=== PATIENT | male | born 1955 | race Caucasian/White ===

== ENCOUNTER → 2017-06-09 | Outpatient (CLI) | payer BC ==
[~2017-06-09] MED LIST: ESCI10TA17 PO
--- NOTE | 2017-06-09 09:59 | DIAGNOSTIC IMAGING REPORT ---
CERVICAL SPINE 6 VIEWS HISTORY: Neck stiffness. TORTICOLLIS COMPARISON: None. FINDINGS: The cervical spine is visualized from C1 through the superior endplate of T1. There is no fracture. No subluxation. Straightening of the cervical spine. Mild to moderate disc space narrowing at C5-C6 and C6-C7 with large anterior osteophytes seen from C4 through C7. Mild bilateral neural foraminal narrowing at C3-C4 primarily due to the facet arthrosis. Moderate bilateral neural foraminal narrowing at C5-C6 and C6-C7 due to the facet arthrosis and uncovertebral hypertrophy. Prevertebral soft tissues and the atlantodens interval are intact. IMPRESSION: No fracture or subluxation within the cervical spine. Degenerative changes as described above. Electronically signed by: Sascha Knox M.D. 06/09/2017 9:58 AM Dictated Date/Time: 06/09/2017 9:56 AM
== END | disposition home or self-care (01) ==
LOC: C.LAB1850 09:08
PROVIDERS: ATTEND Student in an Organized Health Care Education/Training Program
DX: M43.6 Torticollis (principal)

== ENCOUNTER 2020-05-21 06:52 | Observation (INO) ==
--- NOTE | 2020-04-22 12:08 | PAT Medication Instructions ---
Medication Instructions Date of Service April 22, 2020 Home Medications irbesartan 150 mg PO QAM multivitamin 1 tab PO QAM DO NOT take the morning of surgery irbesartan 150 mg PO QAM multivitamin 1 tab PO QAM OTHERWISE NOTHING TO EAT OR DRINK AFTER MIDNIGHT Other Notes If you have any questions please call us at [phone] or [phone] or [phone] or [phone]
--- NOTE | 2020-04-25 12:02 | Anesthesiology Consultation ---
Date of Service April 25, 2020 Assessment & Plan (1) Encounter for pre-operative examination: COVID Status: As of 04/25 assessment, patient denies travel to endemic area, known exposure/sick contacts, or symptoms of COVID19. Patient instructed that they and their household members must follow strict social distancing guidelines, wear a mask in public and avoid travel/events/gatherings for 14 days prior to surgery. Preoperative COVID19 testing to be completed prior to surgery per surgeon's arrangements (05/15 at [facility]). Patient made aware to self-isolate as much as possible between COVID testing and surgery. Patient is very apprehensive about spinal anesthesia. Discussed options, reassurance provided. Patient ultimately amenable to SAB, but should be discuss ed further AM DOS. Chart Review Chart Review: Acceptable Risk for Surgery (pending surgeon-ordered Pcp clearance 05/06 and cardio clearance 05/05) and Patient seen in Pre Admission Testing Teaching & Discussion Instructed NPO after midnight before surgery, except medications with 15 cc of water. Medication instructions provided according to the PAT guidelines. History Surgery Operation Date: 05/21/20 09:05 Proposed Procedures p Right Total Knee Arthroplasty - Papito Craft MD Height/Weight Height: 6 ft 1 in Weight: 133.9 kg Allergies Allergy/AdvReac Type Severity Reaction Status Date / Time No Known Allergies Allergy Verified 04/16/20 14:20 Medications Home Medications Medication Instructions Recorded Confirmed Last Taken irbesartan 150 mg PO QAM 04/16/20 04/16/20 Unknown multivitamin 1 tab PO QAM 04/16/20 04/16/20 Unknown Past Medical History Medical History (Updated 04/28/20 @ 10:12 by Rachid Mchugh) Depression HX Hypertension Obesity Exercise / Class Metabolic Activity II 4-5 Yardwork/Stairs/Walk up hill Past Family History Family History (Updated 04/16/20 @ 14:42 by Lizet Morgan RN) Father Family history of esophageal cancer STOMACH CANCER Past Surgical History Surgical History History of appendectomy History of arthroscopy R/L History of colonoscopy History of repair of rotator cuff RIGHT History of tooth extraction Past Anesthesia History No Hx of Anesthesia Complications and No Family Hx of Anesthesia Complications History of PONV No Hx of PONV and No Hx of Motion Sickness Social History Smoking Status: Never smoker Do You Dip or Chew Tobacco: Yes (1 CAN PER 2-3 DAYS -- ADVISED NONE AM DOS) Hx Alcohol Use: Yes Alcohol type: beer, wine and hard liquor alcohol intake frequency: holidays/special occasions only Alcohol Intake Frequency Comment: 1-2 X A MONTH Hx Substance Use: No Review of Systems Pt denies any recent chest pain, shortness of breath, palpitations, cough, fever, URI, or uncontrolled acid reflux. Physical Exam Vital Signs BP: 149/83 P: 85bpm SPO2: 96% RA T: 98.2 F R: 16 ENMT Mouth: + chipped teeth; no loose teeth Mallampati Class: IV Neck + thick neck; neck extension not limited Respiratory normal respiratory effort, lungs clear to auscultation Cardiovascular RRR, no murmur, no edema Vessels: no carotid bruit Testing Laboratory Results 04/25/20 12:22 04/25/20 12:22 PT 10.3 Seconds (9.0-12.0) 04/25/20 12: INR 1.0 (0.9-1.1) 04/25/20 12:22 APTT 30.3 Seconds (21.0-31.0) 04/25/20 12:22 Urine Color Yellow 04/25/20 12:22 Urine Appearance Clear (Clear) 04/25/20 12:22 Urine pH 6.0 (4.5-7.5) 04/25/20 12:22 Ur Specific [place] 1.023 (1.000-1.030) 04/25/20 12:22 Urine Protein Negative (Negative) 04/25/20 12:22 Urine Glucose (UA) Negative (Negative) 04/25/20 12:22 Urine Ketones Negative (Negative) 04/25/20 12:22 Urine Nitrite Negative (Negative) 04/25/20 12:22 Ur Leukocyte Esterase Negative (Negative) 04/25/20 12:22 Blood Type A Positive 04/25/20 12:22 Antibody Screen NEGATIVE 04/25/20 12:22 Electrocardiogram Date: 04/25/20 Findings: + NSR @ (78bpm) Chest X-Ray Date: 04/25/20 Findings: + NAD
--- NOTE | 2020-04-25 12:46 | XRay Report ---
XR chest Pre-admission PA/Lat CLINICAL HISTORY: Preoperative chest COMPARISON STUDY: 04/13/2019 FINDINGS: The cardiac and mediastinal contours are normal. There is no evidence of focal pulmonary co nsolidation. There is no evidence of failure. No pleural effusions are visualized.[ IMPRESSION: No active disease in the chest. ACT 112: Negative or not required by law. Electronically signed by: Chan Osei M.D. 04/25/2020 12:45 PM
[2020-04-25 13:50] LABS: Appearance Urine Clear (Clear); Bilirubin Urine Negative (Negative); Blood Urine Negative (Negative); Color Urine Yellow; Glucose Urine UA Negative (Negative); Ketones Urine Negative (Negative); Leukocyte Esterase Urine Negative (Negative); Nitrite Urine Negative (Negative); Protein Urine Negative (Negative); Specific Gravity Urine 1.023 (1.000-1.030); Urobilinogen Urine Negative (Negative)
[2020-04-25 13:51] LABS: Basophils # (auto) 0.06 K/uL (0-0.2); Basophils % (auto) 0.9 %; Eosinophils # (auto) 0.23 K/uL (0-0.5); Eosinophils % (auto) 3.4 %; Hematocrit (blood only) 45.3 % (42-52); Hemoglobin 14.8 g/dL (14.0-18.0); Immature Granulocytes # (auto) 0.03 K/uL (0.00-0.02); Immature Granulocytes % (auto) 0.4 %; Lymphocytes # (auto) 1.85 K/uL (1.2-3.4); Lymphocytes % (auto) 27.2 %; Mean Corpuscular Hgb Conc 32.7 g/dL (32-36); Mean Corpuscular Volume 85.8 fL (80-100); Mean Platelet Volume 10.6 fL (7.4-10.4); Monocytes # (auto) 0.75 K/uL (0.11-0.59); Neutrophils # (auto) 3.89 K/uL (1.4-6.5); Neutrophils % (auto) 57.1 %; Platelet Count 292 K/uL (130-400); RDW Coefficient of Variation 14.1 % (11.5-14.5); RDW Standard Deviation 44.1 fL (36.4-46.3); Red Blood Count 5.28 M/uL (4.7-6.1); White Blood Count 6.81 K/uL (4.8-10.8)
[2020-04-25 14:00] LABS: Partial Thromboplastin Ratio 1.1; Partial Thromboplastin Time 30.3 Seconds (21.0-31.0); Prothrombin Time 10.3 Seconds (9.0-12.0)
[2020-04-25 14:37] LABS: BUN Creatinine Ratio 14.7 (10-20); Calcium 9.4 mg/dl (8.5-10.1); Est GFR (African American) 100.3; Est GFR (Non-African American) 86.5; Potassium 4.6 mmol/L (3.5-5.1)
--- NOTE | 2020-04-26 07:34 | Electrocardiogram Report ---
Test Reason : Blood Pressure : / mmHG Vent. Rate : 078 BPM Atrial Rate : 078 BPM P-R Int : 184 ms QRS Dur : 108 ms QT Int : 384 ms P-R-T Axes : 070 026 029 degrees QTc Int : 437 ms Normal sinus rhythm Normal ECG When compared with ECG of 24-APR-2007 17:43, No significant change was found Confirmed by Fredy Hansen ([id number]) on 04/26/2020 7:33:58 AM Referred By: Papito Craft Confirmed By:Fredy Hansen
--- NOTE | 2020-04-30 13:18 | History & Physical Report ---
Date of Service April 30, 2020 Assessment & Plan (1) Right knee DJD: Postoperative prescriptions for Percocet and Coumadin will be provided at discharge from the hospital. Anticipate discharge to home with home health services. He understands it will be a 1-night stay. Preoperative lab work, EKG, and chest x-ray have been ordered. Medical clearance was requested from his PCP, Dr. Musa. Prescription was given for a rolling walker. He will obtain a cane as well. PDMP was checked and there are no concerning findings. The patient is aware of the COVID-19 risks associated with surgery. He is currently asymptomatic of any COVID-19 symptoms. Nasal swab testing for COVID- 19 was ordered. History of Present Illness Chief Complaint: Right knee pain Primary Care Provider: Edward Musa MD This 64-year-old white male presents today for evaluation of approximately 30- year history of right knee pain. He is scheduled to undergo a right knee total knee arthroplasty on 05/21/2020. Pain has waxed and waned over the years. He states it was tolerable for many of those years. Over the past 2 years, it has become more significant and is affecting his ADLs. Pain is worse with weightbearing. He cannot do the things he would like secondary to knee pain. He notes frequent effusions. Occasional night pain. No numbness or tingling in the knee. He does note chronic numbness over the anterolateral thigh, but this is not new. He notes some loss of motion. He has tried activity modification as well as oral pain medication and anti-inflammatories without lasting improvement. He now elects to proceed with total knee arthroplasty in hopes of improving his pain and function. Preoperative imaging has been obtained. Allergies Allergy/AdvReac Type Severity Reaction Status Date / Time No Known Allergies Allergy Verified 04/16/20 14:20 Home Medications Medication Instructions Recorded Confirmed Type irbesartan 150 mg PO QAM 04/16/20 04/16/20 History multivitamin 1 tab PO QAM 04/16/20 04/16/20 History Past Med/Surg History Medical History Depression HX Hypertension Obesity Surgical History History of appendectomy History of arthroscopy R/L History of colonoscopy History of repair of rotator cuff RIGHT History of tooth extraction Family History Father Family history of esophageal cancer STOMACH CANCER Other Melanoma Social History (Updated 04/30/20 @ 13:17 by Pipe Hinojosa PA-C) Smoking Status: Never smoker Second Hand Exposure: Yes (FATHER SMOKED); Do You Dip or Chew Tobacco: Yes (1 CAN PER 2-3 DAYS -- ADVISED NONE AM DOS); Hx Alcohol Use: Yes Alcohol type: beer, wine and hard liquor Hx Substance Use: No Preferred Language: Honduran Communication Ability: Effective Sales Enablement Lead Required: No Beliefs That Will Affect Care: None Current Living Situation: Spouse current occupational status: employed Other Information That Helps Us Care for You: No Feels Safe at Home: Yes Safety Concerns: Feels Safe At This Time Assistive Devices: Glasses Review of Systems Review of Systems: All systems reviewed & are unremarkable except as noted in HPI & below A total of 10 systems were reviewed. Physical Exam Physical Exam: Vitals: Height 185.5 cm, weight 134.1 kilograms, BMI 39.0, temperature 36.4, BP 144/78, pulse 85, O2 sat 96% on room air. General: Well- developed, well-nourished middle-aged white male in no acute distress. Sitting on a chair. Alert and oriented. Very large individual. Skin: Warm and dry with good turgor. No rashes or lesions. No ecchymosis or erythema. HEENT: Normocephalic, atraumatic. Eyes: PERRLA. EOMI. Nares and oropharynx exams deferred due to COVID precautions. Heart: RRR, no MGR. Lungs: Clear to auscultation bilaterally; no crackles, rhonchi or wheezing; good air movement. Abdomen: Obese; bowel sounds present x4; soft, nontender. No organomegaly. No masses. Musculoskeletal: Right knee evaluation reveals a mild intraarticular effusion. No redness or warmth. No abrasions. He lacks about 3 degrees of terminal extension. Flexion to just greater than 110 degrees. Strength is 5/5 with good quad tone. He has focal discomfort with palpation over the medial and lateral joint lines. There is also peripatellar discomfort with palpation. Crepitus is palpable with motion. Stable collateral ligaments. He does have a varus alignment. Ambulates with an antalgic gait. No defect in the patellar tendon or quadriceps tendon. Neurologic: Gross sensation is intact across the right leg by soft touch. Peripheral pulses are 2+. Results & Data Results & Data ([facility]) Diagnostic Findings Radiographic imaging previously obtained shows end-stage DJD of the right knee with varus alignment. There is lateral subluxation of the tibia. Periarticular osteophytes and subchondral sclerosis are also present.
[~2020-05-21 06:52] MED LIST changes: +BUPIVACAINE 0.5 % 5 MG/1 ML PF 10ML VIAL ONE; -ESCI10TA17 PO; +LR 500ML BOLUS, THEN 15ML/HR IV SCH; +LR 60ML/HR IV SCH; +ROPIVACAINE 0.5% 5 MG/ML 30 ML VIAL ONE; +ROPIVACAINE 0.5% HCL/PF 150 MG, BUPIVACAINE 0.75% MPF 20 ML, EPINEPHrine 0.15 MG, Ketor... INFIL SCH; +TRANEXAMIC ACID 1,000 MG **IV Pre-op IV SCH
[2020-05-21] MEDS ORDERED: LIDOCAINE HCL 2% 2 ML VIAL/AMP(20MG/ML) INFIL ONE ×2 (07:34→10:53)
[2020-05-21] MEDS ORDERED: PROPOFOL IV EMULSION 10 MG/ML 20 ML VIAL IV ONE (07:34)
[2020-05-21] MEDS ORDERED: MIDAZOLAM HCL 1 MG/ML 2ML VIAL ONE (07:34)
[2020-05-21] MEDS ORDERED: fentaNYL citrate 100 MCG/2 ML VIAL ONE (07:34)
--- NOTE | 2020-05-21 08:34 | History & Physical Bridge Note ---
Date of Service May 21, 2020 History & Physical Bridge Note I have examined the patient, reviewed the History & Physical and in the interval since the performance of the History & Physical I have noted the following changes of clinical significance:consent obtained/site verified/covid screen negative. no changes noted
[2020-05-21] MEDS ORDERED: ORTHO JOINT ANESTHETIC ONE (08:46)
[2020-05-21] MEDS ORDERED: KETAMINE 50 MG/5 ML SYRINGE ONE (09:19)
--- NOTE | 2020-05-21 10:38 | Post Operative Brief Note ---
Immediate Post Op Note v1 Date of Surgery May 21, 2020 Pre & Post Diagnosis Operation Date: 05/21/20 08:50 Pre-Op Diagnosis: Right Knee Degenerative Joint Disease Post-Op Diagnosis: Right Knee Degenerative Joint Disease I identified the patient and participated in the time-out.: Yes Procedure Operation Date: 05/21/20 08:50 Actual Procedures p Right Total Knee Arthroplasty(Right) - Papito Craft MD Surgeon Papito Craft MD Audit Consultant juliana/jeannine Estimated Blood Loss 50 Findings Consistent with Post-Op Diagnosis
--- NOTE | 2020-05-21 10:48 | Operative Report ---
Post Operative Report Pre & Post Diagnosis Operation Date: 05/21/20 08:50 Pre-Op Diagnosis: Right Knee Degenerative Joint Disease Post-Op Diagnosis: Right Knee Degenerative Joint Disease I identified the patient and participated in the time-out.: Yes Procedure Operation Date: 05/21/20 08:50 Actual Procedures p Right Total Knee Arthroplasty(Right) - Papito Craft MD Surgeon RADHA Craft MD Imaging Nurse juliana/jeannine NOE Estimated Blood Loss 50 Findings Consistent with Post-Op Diagnosis Specimens see operative report Drains none Complications none Disposition Accompanied Patient To Recovery: Yes Disposition: Recovery Room Indications This 64-year-old male presented to the office with complaints of persisting right knee pain. He has had pain for years. He has tried conservative care measures without improvement. Patient elected to proceed with surgical intervention in hopes of alleviating his pain and improving his function. Preoperative imaging was obtained. Description of Procedure Patient was given a spinal anesthetic and then taken to the operating room and given sedation. He was prepped and draped in the usual sterile fashion. Please see Dr. Craft's operative report for specifics of the procedure. I was present for the entire case from initial patient positioning through final wound closure. Assistance was provided in tissue retraction, hemostasis, trial implant placement, final implant placement, and final wound closure. Patient was taken to the recovery room in satisfactory condition. I attest to the content of the Intraoperative Record and any orders documented therein. Any exceptions are noted below.
--- NOTE | 2020-05-21 10:49 | Operative Report ---
Post Operative Report Pre & Post Diagnosis Operation Date: 05/21/20 08:50 Pre-Op Diagnosis: Right Knee Degenerative Joint Disease Post-Op Diagnosis: Right Knee Degenerative Joint Disease I identified the patient and participated in the time-out.: Yes Procedure Operation Date: 05/21/20 08:50 Actual Procedures p Right Total Knee Arthroplasty(Right) - Papito Craft MD Surgeon Papito Craft MD Marketing Proposal Specialist juliana/jeannine NOE Estimated Blood Loss 50 Findings Consistent with Post-Op Diagnosis Specimens bone cuts Anesthesia Type Spinal MAC Complications none Disposition Accompanied Patient To Recovery: Yes Disposition: Recovery Room Description of Procedure As per 's note I assisted in prepping and draping, instruments handling, certain parts of the procedure and wound closure. I attest to the content of the Intraoperative Record and any orders documented therein. Any exceptions are noted below.
[2020-05-21] MEDS ORDERED: ePHEDrine sulfate 50 MG/ML SYR ONE (10:53)
--- NOTE | 2020-05-21 11:07 | Operative Report (OR) ---
DATE OF OPERATION: 05/21/2020 SURGEON: Papito Craft MD. SHIRRING TENDER: Eva. SECOND SHIRRING TENDER: Pipe Hinojosa PA-C. PREOPERATIVE DIAGNOSIS: Osteoarthritis, right knee. POSTOPERATIVE DIAGNOSIS: Osteoarthritis, right knee. OPERATION PERFORMED: Right total knee replacement, cemented. SUMMARY OF IMPLANTS: Size 5 right posterior cruciate substituting femur, size 5 right mobile bearing tray, size 41 patella, 5 x 10 posterior cruciate substituting rotating platform insert. Two bags of Palacos G cement. Bone pathology pending. DVT prophylaxis per protocol. Crystalloid per anesthesia. PERIOPERATIVE SITUATION: Medically cleared male with intractable knee pain, has significant varus flexion deformity with significant patellofemoral disease as well. At this point in time, his ACL is also chronically deficient and he has significant giving way and pain in his knee, wants to proceed with surgical treatment. He has failed conservative management for over a decade. DESCRIPTION OF PROCEDURE: The patient was appropriately identified, site verified, consent verified. Antibiotics confirmed as being given. The right lower extremity was prepped and draped in usual routine fashion. Tourniquet inflated to 300 mmHg after exsanguination of limb with a rubber Esmarch bandage for a total of 54 minutes. Midline exposure utilized. Parapatellar arthrotomy performed. Synovectomy completed, osteophytes resected. Distal femur entered. PCL was resected. ACL was absent. Distal femur then resected 14 mm, proximal tibia then resected 4 mm, extension gap was excellent. Femur was quite large. It measured between a 6 and a 5, so it was measured 6, cut 5, no notching occurred. The anterior and posterior condylar and chamfer cuts were then made. The flexion gap was checked. It was excellent. The box cut was then made and the size 5 fit well. The tibia was then broached and reamed to a size 5, and between a 10 and a 12.5 mm spacer, the 10 gave a little bit better extension. There was no mid range flexion instability. The Orthomix was then injected all around the knee including the posterior capsule. All trial implants were removed after the patella was resected and the 41 button noted to fit well. The patella tracked well. All trial implants were removed. Orthomix injected, knee irrigated with Betadine Pulsavac and cemented sequentially, tibia, femur, and patella in that order. After 12 minutes, the tourniquet was deflated. Minor bleeding points were controlled with electrocautery. After 14 minutes, the knee was flexed. Minor cement removal required. knee irrigated and the permanent spacer seated. The knee reduced and closed in about 40 degrees of flexion with #2 Vicryl, 2-0 Vicryl and stainless steel clips. Appropriate dressing applied. The patient was transferred to recovery room in satisfactory condition having tolerated the procedure well. I attest to the content of the Intraoperative Record and any orders documented therein. Any exception s are noted below.
--- NOTE | 2020-05-21 11:08 | XRay Report ---
XR knee RT 1 or 2V routine CLINICAL HISTORY: s/p R TKA COMPARISON: Right knee radiographs April 07, 2020. FINDINGS: Alignment of the right knee arthroplasty is anatomic. No periprosthetic fracture or unexpe cted radiopaque foreign body. There are skin solo. IMPRESSION: Expected findings following total right knee arthroplasty. ACT 112: Negative or not required by law. Electronically signed by: Elan Daniel M.D. 05/21/2020 11:07 AM
--- NOTE | 2020-05-21 11:21 | Progress Notes ---
DATE: 05/21/2020 SUBJECTIVE: Postop check status post right total knee replacement. The patient is resting comfortably in bed, has no issues. His spinal has worn off. He denies chest pain, shortness of breath, fever, chills, nausea, vomiting or headache. OBJECTIVE: Vital signs are stable, he is afebrile. Wound dressing is clean, dry and intact. X-rays postop look excellent. ASSESSMENT: Doing well status post right total knee replacement. Continue postoperative care pathway. Discharge to home tomorrow if he does well overnight.
--- NOTE | 2020-05-21 11:40 | Discharge Summary (DS) ---
CHIEF COMPLAINT: Right knee pain. HISTORY OF PRESENT ILLNESS: The patient underwent elective right total knee replacement for severe varus bicompartmental osteoarthritis of his right knee. At this point in time, he is also ACL deficient, has continued giving way and pain. He wants to proceed with surgical treatment. He has failed decades of conservative management. Hospital course has been uneventful. Postop x-rays look excellent. PAST MEDICAL AND PAST SURGICAL HISTORY: Remarkable for depression, hypertension, obesity, history of appendectomy, arthroscopies, colonoscopies, rotator cuff surgery, dental surgery. FAMILY HISTORY: Remarkable for stomach cancer and melanoma. SOCIAL HISTORY: Reveals he does not smoke. Social alcohol only. He is . Feels safe at home. REVIEW OF SYSTEMS: Reveals no chest pain, shortness of breath, fever, chills, nausea, vomiting or headache. ASSESSMENT: Status post right total knee replacement. Discharge home tomorrow if he does well overnight. Continue care pathway.
[2020-05-21] MEDS ORDERED: bisacodyL 10 MG SUPP PR PRN (12:28)
[2020-05-21] MEDS ORDERED: SODIUM CHLORIDE 0.9% 1000ML 1,000 ML IV SCH (12:28)
[2020-05-21] MEDS ORDERED: NALOXONE HCL 0.4 MG/1 ML VIAL/CARP IV PRN (12:28)
[2020-05-21] MEDS ORDERED: diphenhydrAMINE 50 MG/ML VIAL IV PRN (12:28)
[2020-05-21] MEDS ORDERED: TAMSULOSIN HCL 0.4 MG CAP PO PRN (12:28)
[2020-05-21] MEDS ORDERED: HYDROmorphone INJ 0.5 MG/0.5 ML SYR IV PRN (12:28)
[2020-05-21] MEDS ORDERED: MAGNESIUM HYDROXIDE SUSP 30 ML UDC PO PRN (12:28)
[2020-05-21] MEDS ORDERED: METOCLOPRAMIDE HCL INJ 5 MG/ML 2 ML VIAL IV PRN (12:28)
[2020-05-21] MEDS ORDERED: ONDANSETRON INJ 2 MG/ML 2 ML VIAL IV PRN (12:28)
[2020-05-21] MEDS ORDERED: ALUMINUM/MAGNESIUM SUSP 30 ML UDC PO PRN (12:28)
[2020-05-21] MEDS: oxyCODONE HCL IR 5 MG TAB (IMMEDIATE RELEASE) PO PRN ×3 (13:14→22:42)
[2020-05-21] MEDS ORDERED: ORTHO WARFARIN NOMOGRAM SCH (14:00)
[2020-05-21] MEDS: ACETAMINOPHEN 500 MG TAB PO SCH ×2 (14:29→21:58)
[2020-05-21] MEDS: KETOROLAC 30 MG/ML VIAL IV SCH ×2 (14:31→20:44)
[2020-05-21] MEDS ORDERED: WARFARIN SOD 5 MG TAB PO ONE (16:00)
[2020-05-21] MEDS: ceFAZolin 2000MG 2,000 MG/15 ML SYR IV SCH (16:08)
[2020-05-21] MEDS ORDERED: TRANEXAMIC ACID / 0.7% NACL 1,000 MG/100 ML BAG IV SCH (17:00)
[2020-05-21] MEDS: ASCORBIC ACID 500 MG TAB PO SCH (17:20)
[2020-05-21] MEDS: FERROUS GLUCONATE 324 MG TAB PO SCH (17:20)
[2020-05-21] MEDS: DOCUSATE SODIUM 100 MG CAP PO SCH (20:43)
[2020-05-21] MEDS ORDERED: SENNA 8.6 MG TAB PO SCH (21:00)
[2020-05-22] MEDS: KETOROLAC 30 MG/ML VIAL IV SCH ×2 (01:18→08:29)
[2020-05-22] MEDS: ceFAZolin 2000MG 2,000 MG/15 ML SYR IV SCH (01:18)
[2020-05-22] MEDS: oxyCODONE HCL IR 5 MG TAB (IMMEDIATE RELEASE) PO PRN ×2 (06:16→11:27)
[2020-05-22] MEDS: ACETAMINOPHEN 500 MG TAB PO SCH (06:17)
[2020-05-22 06:21] LABS: Hematocrit (blood only) 37.4 % (42-52); Hemoglobin 12.2 g/dL (14.0-18.0); Mean Corpuscular Hemoglobin 27.9 pg (25-34); Mean Corpuscular Hgb Conc 32.6 g/dL (32-36); Mean Corpuscular Volume 85.4 fL (80-100); Mean Platelet Volume 9.8 fL (7.4-10.4); Platelet Count 248 K/uL (130-400); Red Blood Count 4.38 M/uL (4.7-6.1); White Blood Count 12.25 K/uL (4.8-10.8)
[2020-05-22 06:47] LABS: Prothrombin Time 10.2 Seconds (9.0-12.0)
[2020-05-22 06:56] LABS: BUN Creatinine Ratio 19.3 (10-20); Creatinine Clr Calc Pharmacy 109.7 ml/min; Est GFR (African American) 93.1; Est GFR (Non-African American) 80.3; Potassium 4.3 mmol/L (3.5-5.1)
--- NOTE | 2020-05-22 07:40 | Progress Notes ---
DATE: 05/22/2020 SUBJECTIVE: Doing well, has no major issues. Denies chest pain, shortness of breath, fever, chills, nausea, vomiting, headache. OBJECTIVE: Vital signs are stable. He is afebrile. LABORATORY DATA: Hematocrit stable in the 30s. INR is 1.0. ASSESSMENT AND PLAN: Doing well. Discharged to home today. Dressing changed prior to discharge. Coumadin before discharge, discharged on 4 mg a day.
[2020-05-22] MEDS ORDERED: dexAMETHasone 10 MG in SYRINGE 0 ML IV SCH (08:00)
[2020-05-22] MEDS: DOCUSATE SODIUM 100 MG CAP PO SCH (08:38)
[2020-05-22] MEDS: ASCORBIC ACID 500 MG TAB PO SCH (08:38)
[2020-05-22] MEDS: FERROUS GLUCONATE 324 MG TAB PO SCH (08:38)
[2020-05-22] MEDS ORDERED: WARFARIN SOD 5 MG TAB PO SCH (09:00)
[2020-05-22] MEDS ORDERED: IRBESARTAN 150 MG TAB PO SCH (09:00)
[2020-05-22] MEDS ORDERED: MULTIVITAMIN TAB PO SCH (09:00)
--- NOTE | 2020-05-22 09:47 | Orthopedic Progress Note ---
Date of Service May 22, 2020 Assessment & Plan (1) Status post total right knee replacement using cement: Patient was seen in his room this morning. Dressings were changed by me. He has scant dried drainage. No active bleeding. Anticipate discharge to home today. He will have PT/OT this morning prior to departure. He will receive Coumadin today per nomogram. He will start Coumadin at home tomorrow. Prescriptions for Coumadin and Percocet have been sent to his pharmacy. Follow-up in the office in 2 weeks as scheduled for staple removal. Admission and Anticipated Discharge Date Admission Date: May 21, 2020 Subjective Patient is seen in his room this morning. He is sitting in a chair. States he feels well. He has less pain now than he did preop. Denies any chest pain, shortness of breath, nausea, vomiting, or abdominal pain. He feels ready to go home. Denies any numbness or tingling. No other complaints. Review of Systems Review of Systems: Unchanged from yesterday. Physical Exam Physical Exam: General: Well-developed, well-nourished, middle-aged white male, in no acute distress. Sitting in a chair. Alert and oriented. Dressings are dry. Skin: Warm and dry with good turgor. No rashes or lesions. Patient has an intact postsurgical dressing on his right leg. Dressings are dry. Upon removal, there is scant dried drainage on his gauze. No active bleeding. Expected postoperative ecchymosis and mild edema. No active bleeding. Musculoskeletal: Patient has intact motor function of his toes and ankle. He has full terminal extension of the knee. Flexion to around 60 degrees. He is able to perform a straight leg raise. Neurologic: Gross sensation is intact across the right leg by soft touch. Peripheral pulses are 2+. Results & Data ([facility]) Vital Signs (Past 12 Hours) Vital Signs Temp Pulse Resp BP BP Pulse Ox 05/22/20 08:34 90 160/81 H 05/22/20 08:00 36.5 C 88 18 126/77 95 05/22/20 04:07 36.6 C 90 18 115/67 96 05/21/20 23:02 36.8 C 91 H 18 115/67 95 Diagnostic Findings H&H obtained today is 12.2 and 37.4. INR is 1.0. PRP is unremarkable.
== END 2020-05-22 11:30 | disposition home health service (06) ==
LOC: 3E 06:52 → PAT 06:52